=== PATIENT | male | born 1995 | race Caucasian/White ===

== ENCOUNTER 2017-07-02 11:50 | Outpatient (CLI) | payer OTHER | END 2017-07-02 11:51 | disposition short-term general hospital (02) | LOC: EMS 11:50 | PROVIDERS: ATTEND Surgery | DX: R58 Hemorrhage, not elsewhere classified (principal) | CPT/HCPCS: A0425; A0427 ==

== ENCOUNTER 2017-07-06 20:21 | Outpatient (CLI) | payer OTHER | END 2017-07-06 20:22 | disposition short-term general hospital (02) | LOC: EMS 20:21 | PROVIDERS: ATTEND Surgery | DX: R58 Hemorrhage, not elsewhere classified (principal) | CPT/HCPCS: A0425; A0427 ==